=== PATIENT | male | born 1985 | race Caucasian/White ===

== ENCOUNTER 2017-04-06 12:38 | Inpatient (IN) ==
[2017-04-06] MEDS ORDERED: SODIUM CHLORIDE 0.9% INJ ONE ×2 (13:18→14:45)
[2017-04-06] MEDS ORDERED: PEPCID IV ONE (13:18)
[2017-04-06] MEDS ORDERED: NS 1,000 ML IV ONE (13:18)
[2017-04-06] MEDS ORDERED: ZOFRAN IV ONE (13:19)
[2017-04-06 13:50] LABS: MANUAL DIFF NEEDED? NO
[2017-04-06 13:54] LABS: BASO% 0.5 % (0.0-0.8); EOS# 0.12 X1000 (0.0-0.7); EOS% 2.8 % (0.0-10.0); HEMATOCRIT 39.7 % (42.0-52.0); HEMOGLOBIN 13.8 g/dL (14.0-18.0); LYMPH# 0.79 X1000 (1.2-3.4); LYMPH% 18.6 % (20.5-51.1); MCH 29.2 PG (27-31); MCHC 34.8 g/dL (33-37); MCV 83.9 FL (81-99); MONO# 0.44 X1000 (0.11-0.59); MONO% 10.4 % (1.7-9.3); MPV 10.2 FL (7.4-10.4); NEUT% 67.7 % (42.2-75.2); PLT 84 X1000 (130-400); RBC 4.73 XMIL (4.7-6.1)
[2017-04-06 14:05] LABS: AGAP 15; ALBUMIN 3.7 g/dL (3.5-5.0); ALKALINE PHOSPHATASE 229 U/L (32-122); AMYLASE 21 U/L (20-200); BUN 13 mg/dL (8-22); CALCIUM 9.2 mg/dL (8.8-10.2); CHLORIDE 96 mmol/L (98-107); COSMO 267; GOT 55 U/L (10-34); GPT 29 U/L (10-44); LIPASE 31 U/L (13-60); POTASSIUM 3.8 mmol/L (3.5-5.1); SODIUM 133 mmol/L (136-145); TCO2 22 mmol/L (25-35); TOTAL BILIRUBIN 5.43 mg/dL (0.20-1.00); TOTAL PROTEIN 7.6 g/dL (6.3-8.3)
[2017-04-06] MEDS ORDERED: MORPHINE IV ONE (14:13)
[2017-04-06 14:14] LABS: URINE CULTURE NEEDED? NO; URINE MICRO REVIEW NEEDED? NO; URINE SOURCE CLEAN CATCH
[2017-04-06 14:17] LABS: BILIRUBIN URINE MODERATE (NEGATIVE); BLOOD URINE NEGATIVE (NEGATIVE); COLOR ORANGE; GLUCOSE URINE NEGATIVE (NEGATIVE); LEUKOCYTES URINE NEGATIVE (NEGATIVE); NITRITE URINE NEGATIVE (NEGATIVE); PH URINE 5.5; PROTEIN URINE TRACE mg/dL (NEGATIVE); TURBIDITY URINE CLEAR (CLEAR); UR EPITHELIAL CELLS <10 /HPF (<10); URINE BACTERIA NEGATIVE /HPF; URINE RBC <10 /HPF (<10); URINE WBC <10 /HPF (<10); UROBILINOGEN URINE 6 mg/dL (NORMAL)
[2017-04-06] MEDS ORDERED: PROTONIX IV ONE (14:45)
[2017-04-06] MEDS ORDERED: SANDOSTATIN IV ONE (14:45)
[2017-04-06 15:05] LABS: INR 1.17; PROTIME 12.4 Seconds (9.2-11.7)
[2017-04-06] MEDS: SANDOSTATIN 500 MICROGM in D5W 100 ML IV SCH (15:28)
--- NOTE | 2017-04-06 15:39 | EKG Report ---
Test Performed on : 04/06/2017 12:50:44 PM Test Reason : elevated herat rate Blood Pressure : / mmHG Vent. Rate : 104 BPM Atrial Rate : 104 BPM P-R Int : 126 ms QRS Dur : 090 ms QT Int : 350 ms P-R-T Axes : 069 052 069 degrees QTc Int : 460 ms Sinus tachycardia. Otherwise normal ECG No previous ECGs available Unconfirmed Result
--- NOTE | 2017-04-06 15:57 | PROVIDER DOCUMENTATION ---
This chart was entered by Shreyas Bearden Scribe, acting as scribe for Bill Gipson MD. HPI-Abdominal Pain/GI Problem - General Chief Complaint: GI Bleed Stated Complaint: ABD PAIN Time Seen by Provider: 04/06/17 12:50 Source: patient Allergies/Adverse Reactions: Patient Allergies Allergy/AdvReac Type Severity Reaction Status Date / Time No Known Allergies Allergy Verified 04/06/17 13:18 Home Medications: Home Medication List Medication Instructions Recorded Confirmed Last Taken Type NK [No Home Medications] 04/06/17 04/06/17 Unknown History - History of Present Illness-ABD Nature of Presenting Problems: 31 yo M presents to the ER with complaint of epigastic and RUQ pain x 1 week. PT has also been vomiting blood and can't keep anything down. PT has had 3 band ligations. Pt has been to [place] several times recently and is not getting any better. Abdominal Pain Onset Location: reports: RUQ, epigastric Pain Radiation: reports: no radiation Quality of Pain: reports: aching Severity in ED: reports: mild Onset/Duration: reports: 1 week ago Timing: reports: still present Associated Symptoms: reports: nausea, vomiting Emesis Description: reports: red blood Review of Systems - Adult - REVIEW OF SYSTEMS - ADULT Constitutional: denies: chills, fever Cardiovascular: denies: chest pain, palpitations Respiratory: denies: cough, shortness of breath Gastrointestinal: reports: abdominal pain, hematemesis, nausea, vomiting All Other Systems: Reviewed and Negative Past History - Adult - PAST MEDICAL HISTORY-ADULT Review of Records: reports: Old Records Reviewed, Nursing Assessment Review, Medications Reviewed, Social history reviewed & non-contributory. Major Childhood Illnesses: reports: denies history Cardiovascular: reports: denies history Respiratory: reports: denies history Gastrointestinal: reports: liver disease, other (cirrhosis) Obstetrical/Gynecological: reports: denies history Genitourinary: reports: denies history Musculoskeletal: reports: denies history Neurological: reports: denies history Endocrine/Immune: reports: denies history Other Conditions: reports: denies history - PRIOR SURGERIES/PROCEDURES Surgical/Procedure History: reports: cholecystectomy - PRIOR HOSPITALIZATIONS Prior Hospitalizations: reports: none - IMMUNIZATION STATUS Childhood Immunizations: See Nurse Assessment Flu Vaccine: See Nurse Assessment - FAMILY HISTORY Family History: reviewed, not pertinent Physical Exam-General - PHYSICAL EXAM-ADULT Initial Vital Signs Reviewed: Yes - CONSTITUTIONAL General Appearance: appears well, alert, no apparent distress - RESPIRATORY Respiratory: chest non-tender, lungs clear, normal breath sounds - CARDIOVASCULAR Cardiovascular: normal peripheral pulses, tachycardia - GASTROINTESTINAL (ABDOMEN) Abdominal Exam: normal bowel sounds, soft, tenderness. negative: rebound - MUSCULOSKELETAL Extremity: normal range of motion, non-tender, normal gait Progress - PLAN OF CARE/RESULTS Progress/Plan/Lab Results: Vital Signs - 8 hr 04/06/17 12:43 04/06/17 13:14 Temperature 99.4 F 97.5 F L Pulse Rate 130 H 97 H Respiratory Rate 20 16 Blood Pressure 152/85 121/82 O2 Sat by Pulse Oximetry 98 94 L Orders Category Date Time Status EKG [EKG] Stat Ther 04/06/17 12:46 Ordered Result Diagrams: 04/06/17 13:20 04/06/17 13:20 - EKG 1 Time of EKG reading by physician:: 14:09 EKG Read and Signed by:: Bill Gipson EKG Interpretation (*Must complete 3 of following elements*): Normal Rate: 104 Rhythm: sinus tachycardia [place]: normal QRS: normal VT Interval: normal ST Wave: normal Comments: otherwise normal - CONSULTS/PCP/HOSPITALIST Notification #1 *Consult/PCP/Hospitalist*: Dr Demarco Time Discussed: 15:51 Consult Disposition: Admit #2 Consult: Dr Collins(GI) Time Discussed: 15:51 Consult Disposition: Admit Departure - Departure Date of Disposition Decision: 04/06/17 Time of Disposition Decision: 15:52 DIAGNOSIS: Upper gastrointestinal bleeding, Thrombocytopenia Cirrhosis with alcoholism Qualifiers: Ascites presence: without ascites Qualified Code(s): K70.30 - Alcoholic cirrhosis of liver without ascites Disposition: ADMITTED INPATIENT 09 Certified Medical Emergency: Emergent Condition: Fair Referrals and Follow-Ups: None,PCP [Primary Care Provider] - - Critical Care Note This patient required my direct & personal management of CC.: No Comments: A 31 y/o M with significant history of alcoholic cirrhosis and esophageal varices presented with UGI bleed, HB stable platelets were on the lower side, consulted GI, given octreotide and started on drip along with protonix will admit to hospitalist This chart was documented by the indicated scribe, (Shreyas Bearden, Candice) and accurately reflects the services I performed and decisions made by me, Bill Gipson MD, as attested by the provider's signature.
[2017-04-06] MEDS: PROTONIX IV SCH (16:30)
[2017-04-06] MEDS: NS 1,000 ML IV SCH ×2 (16:30→23:59)
[2017-04-06] MEDS: DILAUDID IV PRN ×2 (16:33→20:45)
--- NOTE | 2017-04-06 16:45 | HISTORY AND PHYSICAL ---
HISTORY OF PRESENT ILLNESS: A 31-year-old white male who presented on 04/06/2017. He was admitted back in May. He came in complaining of nausea and vomiting and vomiting up a lot of bright red blood and blood clots. He had been to the [facility], abusing opiates and he got some pain medicines this last week. He has been sick really for a couple of weeks with nausea. He has not had much to eat in the last couple days. He thinks he has 2 tacos the last 3 or 4 days. He drank pretty heavy. I think by report started smoking marijuana at age 11 and began Lortab at age 17. He was taking at 1 point over 150 mg a day and then was taking some Xanax, began Adderall at age 23. He was working out I think and he said in [place] and developed some liver trouble, went to [facility]. I think they found cirrhosis. They did paracentesis. It sounds like they had to do some esophageal banding as well and he said something about splenic thrombosis, I am not sure if they are talking about splenic vein thrombosis. He said they were contemplating removing part of his spleen, but elected not to. ALLERGIES: He has no known drug allergies. FAMILY HISTORY: Noncontributory. He states that he has had loose stools for a week. He does not think they appeared black, but off and on he has been throwing up and throwing up little bits of blood. His stomach hurts after he eats. He has diffuse abdominal pain. He is requesting something for pain at the present and also for his headache. PHYSICAL EXAMINATION: VITAL SIGNS: Temperature 97.5 degrees, pulse 90, respirations 18, blood pressure 127/84. HEENT: Pupils are equal, round. LUNGS: Clear in all lung noel. CARDIOVASCULAR: Regular rhythm and rate without murmur or S3. ABDOMEN: Soft. SKIN: Warm and dry. WEIGHT: 200 pounds. I wonder if that is accurate. HEIGHT: Is 5 feet 10 inches. LABORATORY: White count 4250, hematocrit 39, platelet count 84,000, MCV is 83. Sodium 133, potassium 3.8, chloride 96, bicarb 22, BUN 13, creatinine 0.6, blood sugar 101. Liver functions: AST was 55, ALT 29, alkaline phos 229, albumin 3.7, amylase 21, lipase 31. ProTime is 12.4 and INR 1.17. Urinalysis unremarkable. Blood type is O positive. ASSESSMENT AND PLAN: 1. Upper gastrointestinal bleed. This may be esophageal. He could also have a gastric ulcer. Gastritis. We will put him on a proton pump inhibitor at the present time. I will put him on an octreotide drip. He is getting 50 mcg/hour. We will have him on a proton pump inhibitor as well. We will give Protonix 40 mg IV q.12 hours. GI is notified we are moving to the unit. Follow serial hemoglobin, hematocrit, give him some normal saline and probably need 2 ports to IV access. 2. Presume he has hepatic cirrhosis with portal hypertension. 3. Note that the platelet count is 84,000. His INR is 1.17, ProTime 12.4. He is complaining of something for pain. We will let him have some Dilaudid for now. cc: Yonis Valiente MD
[2017-04-06] MEDS ORDERED: DILAUDID IV ONE (22:32)
[2017-04-07] MEDS: DILAUDID IV PRN ×5 (00:47→19:47)
[2017-04-07] MEDS: SANDOSTATIN 500 MICROGM in D5W 100 ML IV SCH ×2 (00:47→11:47)
[2017-04-07] MEDS: PROTONIX IV SCH ×2 (04:39→16:45)
[2017-04-07] MEDS: SODIUM CHLORIDE 0.9% INJ SCH ×2 (04:39→16:45)
[2017-04-07] MEDS ORDERED: OFIRMEV 1000 MG/ISOTONIC SOLN 1,000 MG/100 ML BOTTLE IV ONE (06:15)
[2017-04-07] MEDS: ZOFRAN IV PRN (06:18)
[2017-04-07 06:35] LABS: MANUAL DIFF NEEDED? NO
[2017-04-07 06:46] LABS: INR 1.2; PROTIME 12.7 Seconds (9.2-11.7); PTT 32.2 Seconds (22.0-36.0)
[2017-04-07 06:57] LABS: AGAP 13; ALBUMIN 3.5 g/dL (3.5-5.0); ALKALINE PHOSPHATASE 224 U/L (32-122); BUN 11 mg/dL (8-22); CALCIUM 8.5 mg/dL (8.8-10.2); CHLORIDE 98 mmol/L (98-107); COSMO 274; GOT 63 U/L (10-34); GPT 32 U/L (10-44); MAGNESIUM 1.8 mg/dL (1.5-2.7); POTASSIUM 3.9 mmol/L (3.5-5.1); SODIUM 137 mmol/L (136-145); TCO2 26 mmol/L (25-35); TOTAL BILIRUBIN 4.35 mg/dL (0.20-1.00); TOTAL PROTEIN 7.5 g/dL (6.3-8.3)
[2017-04-07 07:07] LABS: BASO% 0.5 % (0.0-0.8); EOS# 0.09 X1000 (0.0-0.7); EOS% 4.3 % (0.0-10.0); HEMATOCRIT 39.1 % (42.0-52.0); HEMOGLOBIN 13.1 g/dL (14.0-18.0); LYMPH# 0.59 X1000 (1.2-3.4); LYMPH% 28.1 % (20.5-51.1); MCH 29.4 PG (27-31); MCHC 33.5 g/dL (33-37); MCV 87.9 FL (81-99); MONO# 0.26 X1000 (0.11-0.59); MONO% 12.4 % (1.7-9.3); MPV 9.8 FL (7.4-10.4); NEUT% 54.7 % (42.2-75.2); PLT 56 X1000 (130-400); RBC 4.45 XMIL (4.7-6.1)
[2017-04-07] MEDS: NS 1,000 ML IV SCH ×2 (08:12→16:45)
--- NOTE | 2017-04-07 12:33 | PROGRESS NOTE ---
DATE: 04/07/2017 SUBJECTIVE: He is extubated and was resting comfortably this morning, shortly after complaining of severe headache, with just generalized headache in the front and the back. No focal neurologic deficits. OBJECTIVE: Vital signs: Temperature 97.3 degrees, pulse 74, respirations 17, blood pressure 112/72. HEENT: The pupils are equal, round. Lungs: Clear in all lung noel. Cardiovascular: Regular rhythm and rate, without murmur or S3. Abdomen: Soft. Skin: Warm and dry. URINE OUTPUT: 1850 mL. LABORATORY: White count 2100, hematocrit 39, platelet count 56,000. It was 84,000 yesterday. Chemistries: Sodium 137, potassium 3.9, chloride 98, bicarbonate 26, BUN 11, creatinine 0.7, blood sugar 110, calcium 8.5, alkaline phosphatase 224, AST was 63, and ALT was 32. ASSESSMENT AND PLAN: 1. Upper gastrointestinal bleed, vomiting. Suspect a Joseline-Tolentino tear. Continue his proton pump inhibitor. He had abdominal/pelvic CT. Unsure if we have a copy of that, but there was apparently some complaints of air in the mediastinum. 2. Heroin. I suspect we are going through heroin withdrawal. He had a long history of opioid dependence. Not sure if there are any recent IV drugs or not. He denies. He has a history of hepatic cirrhosis and portal hypertension. I will continue follow. 3. Low platelet count, I think secondary to alcohol and to the underlying hepatic liver disease. He has a history of esophageal bleeding before. He is on an octreotide drip. REVIEW OF HIS ORDERS: I do not see anything to change at this point. I am giving him Dilaudid 1 mg IV q.4 hours p.r.n. He is complaining of headache. I do not want to give him nonsteroidal anti- inflammatories at this point. Review of his lab this morning is about the same. He has pretty severe headache, so we will get a CT of his head without contrast. Note: There was no CT of his chest and there was no evidence of any Joseline-Tolentino injury or free air, so that report was not accurate, but he has had bleeding and vomiting up blood, so he is here for upper gastrointestinal bleed. cc: Yonis Valiente MD
--- NOTE | 2017-04-07 12:37 | Diag Imaging Result Doc PS360 ---
EXAM: HEAD W/O CONTRAST HISTORY: severe headache TECHNIQUE: CT of the head without contrast with dose reduction (clarity.) COMMENT: There is no evidence of mass effect, bleed, or abnormal extra-axial fluid collection. The paranasal sinuses are clear is seen. The calvarium appears to be intact. IMPRESSION: No acute intracranial disease. Electronically signed by Tyson Waggoner 04/07/2017 12:35 PM
[2017-04-07] MEDS ORDERED: ZOFRAN ONE (14:49)
[2017-04-07] MEDS: DILAUDID ONE ×3 (14:54→15:09)
[2017-04-07] MEDS ORDERED: DIPRIVAN 1% 500 MG/50 ML BOTTLE ONE (15:14)
[2017-04-07] MEDS ORDERED: LR 1,000 ML ONE (15:21)
[2017-04-07] MEDS ORDERED: XYLOCAINE-MPF 2% ONE (15:21)
[2017-04-07] MEDS ORDERED: QUELICIN (DOSE) ONE (15:21)
--- NOTE | 2017-04-07 15:47 | OPERATIVE NOTE ---
PROCEDURE DATE: 04/07/2017 PROCEDURE: Esophagogastroduodenoscopy and banding. PREOPERATIVE DIAGNOSIS: Gastrointestinal bleed. POSTOPERATIVE DIAGNOSES: 1. Esophageal varices. 2. Food in the stomach. 3. Otherwise normal esophagogastroduodenoscopy. HISTORY: This is a 31-year-old gentleman with history of cirrhosis of the liver with esophageal varices status post banding, admitted to hospital with symptoms of hemoptysis/hematemesis. EGD was done to evaluate for possible variceal bleed. DESCRIPTION OF PROCEDURE: Informed consent was obtained from the patient. Procedure risks, benefits, alternatives were explained in layman's terms. He understood. All his pertinent questions were answered. Patient was brought to the endoscopy unit and was intubated and put in general anesthesia. After adequate sedation, while he was lying in left lateral position, the gastroscope was introduced into the posterior pharynx and advanced under direct vision into the esophagus. Esophagus showed 2 columns of esophageal varices grade 2, 3. However there was no stigmata of recent bleed. No castro-red spot was seen. No evidence of bleeding noted. The GE junction was noted at about 40 cm from the incisor. There was some hyperemia noted but no distinct ulcer, or evidence of active bleeding seen. The scope was then passed through the esophagus into the stomach, which showed a moderate amount of food which was covering most of the stomach. Only the antrum could be evaluated, which did not show any evidence of ulcer, AVM or masses. No evidence of active bleeding or stigmata of recent bleed seen in the stomach. There was food content and the stomach was also clear of any blood or altered blood or clots. Scope was then passed through the normal pylorus, into the duodenal bulb and then 2nd part of duodenum, both appeared to be normal. Scope was withdrawn back and the band was applied onto the scope. The scope was reintroduced back into the esophagus and 3 bands were applied on the varices. After the bands were deployed scope was withdrawn. Patient tolerated procedure. No complications noted. Patient will be extubated after the procedure. IMPRESSION: 1. Esophageal varices grade 2-3, bands applied. 2. Food in the stomach and otherwise no evidence of active bleeding. RECOMMENDATION: His presentation was highly suggestive of hemoptysis and I did not see any evidence of active bleeding or stigmata of recent bleed in the stomach or esophagus. I think it needs to be evaluated for hemoptysis. In the meantime, I would taper and discontinue his Sandostatin, continue his proton pump inhibitor but change to p.o., and start him on full liquid diet and advance his diet as tolerated. He he will be followed while he is in the hospital, and I will advise him to follow up with Dr. Lechuga at [facility]. cc: Rayo Parisi MD
--- NOTE | 2017-04-07 16:07 | CONSULTATION ---
DATE OF CONSULTATION: 04/07/2017 CONSULTING PHYSICIAN: Dr. Yonis Valiente. REASON FOR CONSULT: Upper GI bleed. HISTORY OF PRESENT ILLNESS: This is a 30-year-old gentleman who has a known history of alcohol- induced cirrhosis of the liver and esophageal varices. He is currently being followed by Dr. Lechuga at [facility]. He was admitted at [facility] multiple times with similar symptoms. However, he was investigated and found to have hemoptysis rather than hematemesis. His esophageal varices were banded. He was also evaluated for SBP and has had multiple admissions for that. He was brought to the emergency room yesterday with similar symptoms of "spitting up blood." He tells me that he has been nauseated and has tried to vomit and had seen some bright red blood. He, however, denies any melena. He does complain of some indigestion but denies abdominal pain per se. His appetite has been good. He is hungry. In fact, he was supposed to be NPO but he had gone and had a burger . He claims that he has had an appointment with [facility] liver clinic for evaluation of his esophageal varices but he was not able to make it to the appointment because of lack of transportation. PAST MEDICAL HISTORY: 1. Cirrhosis of the liver with portal hypertension. 2. Esophageal varices. 3. History of hemoptysis and recurrent SBP. PAST SURGICAL HISTORY: He has had arthroscopic surgery of his knee and shoulder. MEDICATIONS: Prior to his hospitalization, he claims he was not taking any medication now. ALLERGIES: No known allergies. SOCIAL HISTORY: He is currently living in [place]. He claims he chews tobacco but he says he does not drink. REVIEW OF SYSTEMS: As per HPI as above. PHYSICAL EXAMINATION: General: Very pleasant white male. He is lying in bed. He is conscious, alert. Appears to be in no distress. Vital signs: Temperature 97.6 degrees, pulse 86 per minute, breathing 16, blood pressure 112/72. He weighs about 200 pounds. HEENT: Head is atraumatic, normocephalic. Eyes: Conjunctivae is normal. Sclerae anicteric. Nares are patent. No discharge. Mouth: Buccal mucosa moist. Throat is normal. Neck: Supple. No lymphadenopathy or thyromegaly. Chest: Clear to auscultation. Heart: S1, S2 audible. No murmur. Abdomen: Full, soft, nontender. Bowel sounds are audible. Extremities: No pedal edema noted. LABS: Reviewed which showed WBC 2.10, hemoglobin 13.1, hematocrit 39.1, MCV 87.9, platelets were 56,000. PTT 12.7, INR 1.20. Sodium 137, potassium 3.9, chloride 98, bicarb 26, BUN is 11, creatinine 0.7, glucose 110, AST 63, ALT 32, total bilirubin 4.35, alkaline phosphatase was 224. Urinalysis was negative for UTI. IMPRESSIONS: 1. Hematemesis versus hemoptysis. 2. History of esophageal varices. 3. Cirrhosis of the liver with portal hypertension. 4. Chronic alcohol abuse and chronic alcoholic liver disease. RECOMMENDATION: I agree with current management of Sandostatin drip, proton pump inhibitor IV, and serial hemoglobin and hematocrit. Continue supportive care. In the meantime, we will schedule him for EGD as soon as possible to evaluate for possible variceal bleeding, at least to rule that out. But by the description of his symptoms and the photograph that he showed me on his cell phone of the supposed hematemesis, it appears it is frothy sputum with blood in it, most likely appears to be hemoptysis. But giving him the benefit of doubt and with a history of esophageal varices and status post banding, I will proceed with EGD and confirm that it is not esophageal variceal bleeding and depending on the findings, further plans made. He was due for re- evaluation of his esophageal varices and possible banding anyway and this will give me an opportunity if he needs to, we will band him. I have explained our findings and plan to the patient. He understands. All of his pertinent questions were answered. cc: Rayo Parisi MD
[2017-04-07] MEDS: ATIVAN IV PRN ×2 (17:37→22:02)
[2017-04-08] MEDS: SANDOSTATIN 500 MICROGM in D5W 100 ML IV SCH ×3 (00:16→22:21)
[2017-04-08] MEDS: NS 1,000 ML IV SCH ×3 (00:17→18:06)
[2017-04-08] MEDS: DILAUDID IV PRN ×5 (00:17→20:01)
[2017-04-08] MEDS: PROTONIX IV SCH ×2 (05:40→16:13)
[2017-04-08] MEDS: SODIUM CHLORIDE 0.9% INJ SCH ×2 (05:40→16:13)
[2017-04-08] MEDS: ATIVAN IV PRN ×4 (05:40→22:21)
[2017-04-08] MEDS: FIORICET PO PRN ×3 (10:19→20:01)
--- NOTE | 2017-04-08 10:23 | PROGRESS NOTE ---
DATE: 04/08/2017 SUBJECTIVE: He is still spitting up blood but seems to be coughing it up. He has not had any further emesis of blood. He has complained of a headache and is requesting Dilaudid more often then what I am giving him; it is 1 mg for q.4 hours. We will try some Fioricet to see if that helps. OBJECTIVE: Afebrile. Temperature 97.3 degrees, pulse 70, respirations 20, blood pressure 117/84. HEENT: Pupils are equal, round, lungs clear in all lung noel. Cardiovascular: Regular rhythm and rate without murmur or S3. Urine output over 5 mL. LABORATORY DATA: Labs reviewed from yesterday, white blood cell count 2400, hematocrit 39, platelet count 56,000. Chemistry: Sodium of 137, potassium 3.9, chloride 98, BUN 11, creatinine 0.7, total bilirubin was 4.35, AST 63, and ALT 32, alkaline phos 224. ASSESSMENT AND PLAN: 1. Alcoholic hepatic disease with portal hypertension and esophageal varices. Appeared to have an upper gastrointestinal bleed but, also, may have hemoptysis. Dr. Parisi has performed esophagogastroduodenoscopy, and this was done on 04/07/2017. He has esophageal varices, grade 2-3. Bands were applied. Food in the stomach. Otherwise, no evidence of active bleeding. 2. Hemoptysis. We will ask Dr. Lott to assist. He does have marginal platelets. We will check a chest x-ray this morning. Probably need to pursue getting a CT of his chest. We will recheck his platelet count today. 3. Complains of headache. I am not sure to what degree. This could be drug withdrawal or even alcohol withdrawal. I think we can stop the Octreotide to see if that will help his headache. We will try some Fioricet for the headache. Of note, he is on Dilaudid 1 mg q.4 hours which he is getting pretty routinely. We are going to have to reduce that and he understands that. cc: Yonis Valiente MD
--- NOTE | 2017-04-08 12:04 | Diag Imaging Result Doc PS360 ---
EXAM: CHEST-PORTABLE HISTORY: hemoptysis TECHNIQUE: Portable upright AP COMPARISON: 12/02/2016 FINDINGS: Poor inspiratory effort. Heart is not enlarged. The vessels are not distended. No pneumonia. No pleural effusions identified. IMPRESSION: Stable chest. Electronically signed by Perry Joy 04/08/2017 12:02 PM
--- NOTE | 2017-04-08 15:58 | PROGRESS NOTE ---
DATE: 04/08/2017 SUBJECTIVE: Patient is asleep and resting. Talked with nurse, she states he has been agitated and irritable all day. He received Fiorinal for headaches and has just went to sleep, I did not wake the patient. The nurse reports he has had 2 episodes of hemoptysis with bright red blood today. He had an EGD yesterday that showed esophageal varices and food in the stomach. Esophageal varices grade 2-3 with bands applied. At the time of the procedure there was no evidence of active bleeding or stigmata of recent bleeding in the stomach or esophagus. It was felt that the bleeding was from hemoptysis. OBJECTIVE: VITAL SIGNS: Temperature 97.3 degrees, pulse 73, respirations 21, blood pressure 117/84. LABORATORY: From 04/07/2017: Hematology; white count 2.19, hemoglobin 13.1, hematocrit 39.1, MCV 87.9, platelets 56,000. Coagulation; ProTime 12.7, INR 1.20, PTT 32.2. Chemistry; sodium 137, potassium 3.9, chloride 98, CO2 26, BUN 11, creatinine 0.7, glucose 110, total bilirubin 4.35, AST 63, ALT 32, alkaline phosphatase 224. ASSESSMENT: 1. Hemoptysis. 2. Alcoholic cirrhosis of the liver with portal hypertension and esophageal varices. 3. Esophageal varices with bands applied via esophagogastroduodenoscopy on 04/07. 4. Headache. PLAN: Continue supportive care. Continue PPI. Continue to monitor for active bleeding. We will continue to follow. Recommend he follow up with his doctor at [facility] once discharged for followup of his cirrhosis of the liver. Pulmonology consult has been placed. We will continue to be available. Further plans will be made according to Dr. Pairsi. Dictated by RANJIT Murguia for Rayo Parisi MD cc: RANJIT Lord MD [facility]
--- NOTE | 2017-04-08 16:06 | Diag Imaging Result Doc PS360 ---
EXAM: CT THORAX W/CONTRAST HISTORY: pneumonia TECHNIQUE: Dose reduction protocol COMPARISON: 03/27/2016 FINDINGS: No pleural effusions. No cardiomegaly. No thoracic aortic aneurysm or dissection. There are several calcified mediastinal nodes. Mildly prominent noncalcified nodes. There is an azygous fissure. This is a normal variant. Minimal markings in the right lung believed to be atelectasis and/or fibrosis. Right hemidiaphragm is elevated. No consolidation. No bronchiectasis. Limited images through the upper abdomen reveals hepatosplenomegaly with cholecystectomy. Findings are similar to the prior exam. IMPRESSION: Stable chest. No pneumonia. Electronically signed by Perry Joy 04/08/2017 4:03 PM
--- NOTE | 2017-04-08 21:12 | CONSULTATION ---
DATE OF CONSULTATION: 04/08/2017 REQUESTING PHYSICIAN: Dr. Yonis Valiente. REASON FOR CONSULTATION: Hemoptysis versus hematemesis. HISTORY OF PRESENT ILLNESS: Mr. Reyna is a 31-year-old, white male with a history of alcoholic cirrhosis, prior opioid dependency, history of marijuana use, chronic oral tobacco use who has had prior episodes of varicocele bleeding and ascites. Patient has undergone esophageal varices ligation/banding. The patient was admitted to [facility] earlier this year with the diagnosis of hemoptysis. It might have been related to the variceal bleeds. He did have an EGD by his report. No bronchoscopy was performed. The patient reports over the last 2 weeks that if he goes to bed while chewing tobacco and gags in the middle night he will cough or spit up blood. He also reports that if he brushes his teeth and coughs or gags, he will split up blood briefly. He was admitted to the hospital 04/06/2017 with these complaints. He was evaluated by Dr. Parisi and underwent an esophagogastroduodenoscopy with banding. No active bleeding was identified and it was felt that his presentation would be more consistent with hemoptysis. Pulmonary evaluation was requested. PAST MEDICAL HISTORY/PROBLEM LIST: 1. Alcoholic liver disease as per above. 2. History of opioid dependence as per above. 3. History of oral tobacco use for greater than 20 years. SOCIAL HISTORY: Patient is unemployed. No cigarette use. Continued daily oral tobacco use. FAMILY HISTORY: Positive for coronary artery disease. REVIEW OF SYSTEMS: Notable for headaches, frequent dizziness, decreased appetite. PHYSICAL EXAMINATION: General: Reveals a well-developed, well-nourished, white male, resting comfortably, and in no distress. Vital signs: Blood pressure 131/82, heart rate 83, respiratory rate 19, oxygen saturation 97% on room air. HEENT: Pupils are equal and reactive. He has mild icteric sclerae. Oropharynx appears benign without overt lesions. Neck: Supple. Chest: Reveals decreased breath sounds right base. Cardiac: Regular rate. Normal S1, normal S2. Abdomen: Soft without hepatosplenomegaly detected on examination. Extremities: Without edema. LABORATORIES: CT scan of the thorax reveals an azygos lobe which is a normal variant. He has elevation of the right hemidiaphragm (also noted in prior [facility] reports). No acute disease in the thorax identified. No evidence of alveolar bleeding. INR is normal at 1.20, white blood count 2.10, hemoglobin 13.1, platelet count 56,000. IMPRESSION: A 31-year-old with alcoholic cirrhosis, ongoing alcohol use, chronic oral tobacco use, chronic thrombocytopenia, with hemoptysis or hematemesis. By patient's report, this may be an upper airway lesion or could be an oropharyngeal lesion. No blood was identified in the stomach. To complete his evaluation, I believe a CT scan of the mouth and neck should be performed. Bronchoscopy will be scheduled for Thursday. It was recommended to the patient that he discontinue alcohol given his underlying cirrhosis. It was also recommended that he discontinue oral tobacco given the increased risk of oral malignancy. RECOMMENDATIONS: 1. Computed tomography scan of the mouth and neck as per above. 2. Anticipate bronchoscopy on Thursday. 3. Discontinuation of alcohol and oral tobacco as recommended above. cc: Sharath Lott MD
[2017-04-09] MEDS: FIORICET PO PRN ×2 (00:06→05:00)
[2017-04-09] MEDS: DILAUDID IV PRN ×5 (00:06→21:26)
[2017-04-09] MEDS: ATIVAN IV PRN ×2 (02:42→07:32)
[2017-04-09] MEDS: PROTONIX IV SCH ×2 (04:59→17:20)
[2017-04-09] MEDS: SODIUM CHLORIDE 0.9% INJ SCH ×2 (04:59→17:20)
[2017-04-09] MEDS: SANDOSTATIN 500 MICROGM in D5W 100 ML IV SCH ×2 (07:32→17:20)
--- NOTE | 2017-04-09 09:49 | Diag Imaging Result Doc PS360 ---
EXAM: NECK W/O CONTRAST - 04/09/2017 HISTORY: Recurrent hemoptysis, hematemasis with gagging TECHNIQUE: Without contrast per request the referring provider. Dose reduction protocol. COMPARISON: None. FINDINGS: There is some limitation of detail due to the lack of progression intravenous contrast. There is a 2.9 x 1.4 cm lesion in the deep subcutaneous tissues of the lower left face with its base against the lateral margin of the posterior body of the mandible. The outer mandibular cortex appears thinned at this location. The lesion contains mixed low-density and high-density areas. While surgical packing material could have a similar appearance, there apparently is no history of recent surgery in this area in the mandible does not show evidence of tooth extraction in this area. The possibility this represents unusual tumor arising from the external aspect of the mandible, such as periosteal liposarcoma, cannot be excluded. There are scattered nonspecific small bilateral cervical lymph nodes. There are no abnormally enlarged lymph nodes identified. IMPRESSION: Apparent 2.9 x 1.4 cm unusual mass at the left lower face adjacent to the external margin of the body of the left mandible. There is thinning of the underlying external cortex of the mandible at this location. Periosteal liposarcoma may be a consideration. Results were discussed by telephone with Dr. Lott at approximately 9:45 AM on 04/09/2017. Electronically signed by Rivas Mars 04/09/2017 9:47 AM
[2017-04-09] MEDS ORDERED: FIORICET PO ONE (11:10)
--- NOTE | 2017-04-09 14:07 | Diag Imaging Result Doc PS360 ---
EXAM: NECK W/O CONTRAST - 04/09/2017 HISTORY: left mandibular mass TECHNIQUE: Without contrast. Dose reduction protocol. COMPARISON: CT neck from earlier the same day (04/09/2017) FINDINGS: The patient apparently told Dr. Walls sometime after the first CT neck was performed he had chewing tobacco in his mouth at the time of scanning, but had not told the clinical lab technologist of this. The lesion which was seen at the left lower face adjacent to the external margin of the body of the mandible is not seen on this exam. The lesion on the previous exam therefore is consistent with a wide of chewing tobacco, rather than a true lesion. The suspected cortical thinning at the underlying mandibular margin on the previous exam was probably artifactual and is not identified on this exam. There is no other substantial abnormality identified. IMPRESSION: No visible substantial abnormality. The suspected lesion at the left lower face on the earlier exam as shown by this exam to be consistent with a wide of chewing tobacco on the earlier exam. There is no visible lesion on this exam. Electronically signed by Rivas Mars 04/09/2017 2:05 PM
[2017-04-09] MEDS ORDERED: FIORICET PO PRN (16:29)
--- NOTE | 2017-04-09 16:48 | PROGRESS NOTE ---
DATE: 04/09/2017 SUBJECTIVE: The patient was transferred out of the unit this morning. He now reports that he has been feeling very depressed and suicidal. He also complains of abdominal pain and continues to cough up bright red blood. OBJECTIVE: Vital Signs: Temperature 98.2 degrees, blood pressure 116/76, heart rate 81, respirations 20, O2 saturations 97% on room air. General: This is a young male , lying in bed, in no acute distress. Head: Normocephalic, atraumatic. Heart: S1, S2. Normal. Regular rate and rhythm. Lungs: Clear to auscultation bilaterally. No crackles. No rales. Abdomen: Positive bowel sounds. Soft, nontender, nondistended. Extremities: No edema. No cyanosis. No calf tenderness. Neurologic: The patient appears depressed, but he is alert and oriented x3. No focal neurologic deficits noted. LABORATORY: White blood cell count 2.1, hemoglobin 13, hematocrit 39, platelets 56,000, INR 1.2, sodium 137, potassium 3.9, chloride 98, CO2 26, BUN 11, creatinine 0.7, glucose 110, total bilirubin 4.3, AST 63, ALT 32, alkaline phosphatase 224. ASSESSMENT AND PLAN: 1. Status post EGD with banding to esophageal varices. Continue on protonix. Monitor H/H closely. 2. Alcoholic liver cirrhosis. Aware. The case was discussed with the on-call hand washer at [facility] today and he stated to continue with the current management. No new recommendations given. 3. Hemoptysis. The patient's computed tomography of the chest is unremarkable. The patient is tentatively going to undergo a bronchoscopy. Further recommendations to follow from the inpatient auditor. 4. Alcohol abuse. The patient has been counseled about cessation. 5. Major depression with suicidal ideation. The patient will be placed on one- to-one monitoring. Once the patient is medically stable, we will consult [facility] for an assessment. 6. Portal hypertension. Aware. 7. Chronic abdominal pain. Continue on p.r.n. pain medication. 8. Polysubstance abuse. Aware. cc: Micaela Walls MD MTDD
[2017-04-09] MEDS: NORCO-7.5 PO PRN ×2 (17:19→22:28)
[2017-04-10] MEDS: DILAUDID IV PRN ×5 (01:19→23:00)
[2017-04-10] MEDS: NORCO-7.5 PO PRN ×5 (02:00→23:48)
[2017-04-10] MEDS: PROTONIX IV SCH ×3 (04:27→17:07)
[2017-04-10] MEDS: SANDOSTATIN 500 MICROGM in D5W 100 ML IV SCH ×2 (04:27→13:29)
[2017-04-10] MEDS: SODIUM CHLORIDE 0.9% INJ SCH (04:27)
[2017-04-10 06:00] LABS: MANUAL DIFF NEEDED? NO
[2017-04-10] MEDS: ZOFRAN IV PRN ×2 (06:22→23:42)
[2017-04-10 06:37] LABS: AGAP 8; ALBUMIN 3.2 g/dL (3.5-5.0); ALKALINE PHOSPHATASE 191 U/L (32-122); BUN 7 mg/dL (8-22); CALCIUM 8.4 mg/dL (8.8-10.2); CHLORIDE 98 mmol/L (98-107); COSMO 268; GOT 41 U/L (10-34); GPT 21 U/L (10-44); POTASSIUM 4.6 mmol/L (3.5-5.1); SODIUM 135 mmol/L (136-145); TCO2 29 mmol/L (25-35); TOTAL BILIRUBIN 2.73 mg/dL (0.20-1.00); TOTAL PROTEIN 6.8 g/dL (6.3-8.3)
[2017-04-10 06:40] LABS: BASO% 0.4 % (0.0-0.8); EOS# 0.09 X1000 (0.0-0.7); EOS% 3.7 % (0.0-10.0); HEMATOCRIT 38.4 % (42.0-52.0); HEMOGLOBIN 12.9 g/dL (14.0-18.0); LYMPH# 0.62 X1000 (1.2-3.4); LYMPH% 25.3 % (20.5-51.1); MCH 29.1 PG (27-31); MCHC 33.6 g/dL (33-37); MCV 86.5 FL (81-99); MONO# 0.29 X1000 (0.11-0.59); MONO% 11.8 % (1.7-9.3); MPV 10.5 FL (7.4-10.4); NEUT% 58.8 % (42.2-75.2); PLT 65 X1000 (130-400); RBC 4.44 XMIL (4.7-6.1)
[2017-04-10 06:51] LABS: INR 1.26; PROTIME 13.4 Seconds (9.2-11.7)
[2017-04-10] MEDS ORDERED: XYLOCAINE 1% ONE ×2 (07:08)
[2017-04-10] MEDS ORDERED: XYLOCAINE 2% ONE ×2 (07:09)
[2017-04-10] MEDS ORDERED: XYLOCAINE 2% VISCOUS ONE (07:09)
[2017-04-10] MEDS ORDERED: SODIUM CHLORIDE 0.9% 20 ML ONE (07:10)
[2017-04-10] MEDS ORDERED: EPINEPHRINE ONE (07:10)
[2017-04-10] MEDS ORDERED: FENTANYL ONE (08:59)
[2017-04-10] MEDS ORDERED: VERSED ONE (08:59)
[2017-04-10] MEDS ORDERED: DIPRIVAN 1% 500 MG/50 ML BOTTLE ONE (09:00)
[2017-04-10] MEDS ORDERED: ZOFRAN ONE (09:12)
[2017-04-10] MEDS ORDERED: ROBINUL ONE (09:12)
[2017-04-10] MEDS ORDERED: NS 1,000 ML ONE (09:12)
[2017-04-10] MEDS ORDERED: XYLOCAINE-MPF 2% ONE (09:12)
--- NOTE | 2017-04-10 09:13 | OPERATIVE NOTE ---
PROCEDURE DATE: 04/10/2017 PROCEDURE PERFORMED: Bronchoscopy. CLINICAL INDICATIONS: Hemoptysis versus hematemesis. DESCRIPTION OF PROCEDURE: After informed consent was obtained, patient was brought to the operating room where the procedure was performed. A time-out was performed and all agreed with the procedure. Topical anesthesia was achieved with viscous lidocaine to both the left and right nostrils. Topical anesthesia above the vocal cords was achieved with 2% lidocaine and 1% lidocaine was utilized below the vocal cords. Monitored anesthesia care was provided by the [facility]. When topical anesthesia and conscious sedation were achieved, bronchoscope was advanced through the left nostril to the level of the vocal cords. The vocal cords were smooth and without lesions. No overt lesions were identified in the hypopharynx. The bronchoscope was advanced into the trachea. There was mild increase in secretions in the trachea which were suctioned for cultures and cytology. Submucosal hemorrhage was noted. In the trachea both proximally and distally and the airways were friable with submucosal hemorrhage elicited with minimal scope trauma. No fresh blood was identified in the airway. The trachea, and right and left mainstem were otherwise without lesions. No endobronchial lesions were identified in the right upper lobe, right middle lobe, right lower lobe, left upper lobe, lingula or left lower lobe. The bronchoscope was retracted. The patient was allowed to recover. IMPRESSION: 1. No fresh blood identified in the tracheobronchial tree. 2. Submucosal hemorrhage noted in the trachea with easy bruisability noted in the airways. 3. No obstructing endobronchial lesions identified. 4. Washing performed as per above. It is suspected that patient developed submucosal hemorrhaging due to increased venous pressures in the trachea along with coagulopathy. A collagen epinephrine platelet test will be sent. cc: Sharath Lott MD
--- NOTE | 2017-04-10 14:35 | PROGRESS NOTE ---
DATE: 04/10/2017 SUBJECTIVE: The patient is resting comfortably in bed. He reports that he is still spitting up blood. He had a bronchoscopy this morning. OBJECTIVE: Vital Signs: Temp 98.6 degrees, blood pressure 115/57, heart rate 83, respirations 18, O2 saturation 98% on room air. General: This is a young male, lying in bed, in no acute distress. Head: Normocephalic, atraumatic. Heart: S1, S2. Normal. Regular rate and rhythm. Lungs: Clear to auscultation bilaterally. Abdomen: Positive bowel sounds. Soft, nontender, nondistended. Extremities: No edema. No cyanosis. No calf tenderness. Neurologic: The patient is alert and oriented x3. LABS: White blood cell count 2.4. Hemoglobin 12. Hematocrit 38. Platelets 65 ,000. INR 1.2. Sodium 135, potassium 4.6, chloride 98, CO2 29, BUN 7, creatinine 0.7, glucose 98. ASSESSMENT AND PLAN: 1. Hemoptysis secondary to submucosal hemorrhage. The patient had a bronchoscopy today that revealed submucosal hemorrhage. It is thought that this was secondary to increased venous pressures. We will continue to monitor the patient closely for improvement. Will start the patient on nadolol. 2. Esophageal varices status post banding. Continue on Protonix. 3. Anemia. The patient's hemoglobin and hematocrit are stable. 4. Alcoholic liver cirrhosis. Aware. The patient has been counseled about alcohol cessation. 5. Severe depression with suicidal ideation. Continue with one-to-one monitoring. Will consult [facility] for an assessment for possible inpatient psychiatric treatment. cc: Micaela Walls MD MTDD
[2017-04-10] MEDS: CORGARD PO SCH (14:57)
[2017-04-10] MEDS: COLACE PO SCH (23:01)
[2017-04-10] MEDS: MIRALAX PO SCH (23:01)
[2017-04-11] MEDS: DILAUDID IV PRN ×5 (03:08→23:03)
[2017-04-11] MEDS: NORCO-7.5 PO PRN ×4 (05:00→20:04)
[2017-04-11] MEDS: PROTONIX IV SCH ×2 (05:03→16:17)
[2017-04-11 06:33] LABS: MANUAL DIFF NEEDED? NO
[2017-04-11 06:46] LABS: BASO% 0.4 % (0.0-0.8); EOS# 0.19 X1000 (0.0-0.7); EOS% 2.5 % (0.0-10.0); HEMATOCRIT 39.8 % (42.0-52.0); HEMOGLOBIN 13.6 g/dL (14.0-18.0); LYMPH% 13.4 % (20.5-51.1); MCH 29.2 PG (27-31); MCHC 34.2 g/dL (33-37); MCV 85.4 FL (81-99); MONO# 0.69 X1000 (0.11-0.59); MONO% 9.2 % (1.7-9.3); MPV 10.2 FL (7.4-10.4); NEUT% 74.5 % (42.2-75.2); PLT 107 X1000 (130-400); RBC 4.66 XMIL (4.7-6.1)
[2017-04-11 07:07] LABS: AGAP 10; BUN 11 mg/dL (8-22); CALCIUM 8.5 mg/dL (8.8-10.2); CHLORIDE 100 mmol/L (98-107); COSMO 271; POTASSIUM 4.2 mmol/L (3.5-5.1); SODIUM 136 mmol/L (136-145); TCO2 26 mmol/L (25-35)
[2017-04-11] MEDS: CORGARD PO SCH (08:04)
[2017-04-11] MEDS: COLACE PO SCH ×2 (09:22→23:06)
[2017-04-11] MEDS: MIRALAX PO SCH ×2 (09:23→23:06)
--- NOTE | 2017-04-11 14:52 | Diag Imaging Result Doc PS360 ---
EXAM: CHEST-PORTABLE INDICATION: dyspnea TECHNIQUE: One view COMPARISON: 04/08/2017 FINDINGS: There is stable elevation of the right hemidiaphragm. There may be mild atelectasis at the right lung base. This is probably stable. There are no definite new consolidations, otherwise. Cardiac silhouette is stable. IMPRESSION: Essentially stable chest. Electronically signed by Ezequiel Hartley 04/11/2017 2:49 PM
--- NOTE | 2017-04-11 15:39 | PROGRESS NOTE ---
DATE: 04/11/2017 SUBJECTIVE: The patient states that he feels a lot better today. He states that his abdominal pain is not as severe. OBJECTIVE: Vital Signs: Temperature 98.4. Blood pressure 100/60, heart rate 55 , respirations 18, O2 saturations 96% on room air. General: This is a young male, lying in bed, in no acute distress. Head: Normocephalic, atraumatic. Heart: S1, S2. Normal. Regular rate and rhythm. Lungs: Clear to auscultation bilaterally. No wheezes. No rales. No rhonchi. Abdomen: Positive bowel sounds. Soft, nontender, nondistended. Extremities: No edema. No cyanosis. No calf tenderness. Neurologic: The patient is alert and oriented x3. LABORATORY DATA: Hemoglobin 13, hematocrit 39, platelets 107,000. BUN 11, creatinine 0.7. Calcium 8.5. CO2 of 26. ASSESSMENT AND PLAN: 1. Hemoptysis secondary to submucosal hemorrhage. Stable. 2. Esophageal varices, status post banding. Continue on Protonix and Nadolol. 3. Anemia. The patient's hemoglobin and hematocrit are stable. 4. Alcoholic liver cirrhosis, aware. 5. Severe depression with suicidal ideation. [facility] has been consulted for possible inpatient treatment. We will await their recommendations. cc: Micaela Walls MD MTDD
[2017-04-12] MEDS: NORCO-7.5 PO PRN ×3 (02:02→11:15)
[2017-04-12] MEDS: DILAUDID IV PRN ×5 (03:55→21:00)
[2017-04-12] MEDS: PROTONIX IV SCH ×3 (07:00→19:30)
[2017-04-12 07:28] LABS: AGAP 10; BUN 13 mg/dL (8-22); CALCIUM 8.4 mg/dL (8.8-10.2); CHLORIDE 101 mmol/L (98-107); COSMO 274; POTASSIUM 4.3 mmol/L (3.5-5.1); SODIUM 137 mmol/L (136-145); TCO2 26 mmol/L (25-35)
[2017-04-12] MEDS ORDERED: ROCEPHIN 1 GM/NS 1 GM/50 ML IVPB IV SCH (07:30)
[2017-04-12] MEDS: CORGARD PO SCH (08:21)
[2017-04-12] MEDS: COLACE PO SCH ×2 (08:23→20:56)
[2017-04-12] MEDS ORDERED: ATIVAN IV PRN (12:14)
[2017-04-12] MEDS: LEVSIN-SL SL SCH ×2 (13:22→16:06)
[2017-04-12] MEDS: SEPTRA DS PO SCH ×2 (13:22→20:59)
--- NOTE | 2017-04-12 16:33 | PROGRESS NOTE ---
DATE: 04/12/2017 SUBJECTIVE: The patient is resting comfortably. He complains of abdominal pain which he states is chronic. OBJECTIVE: Vital Signs: Temperature 98 degrees, blood pressure 96/56, heart rate 62, respirations 18, O2 saturations 97% on room air. General: This is a young male , lying in bed, in no acute distress. Head: Normocephalic, atraumatic. Heart: S1, S2. Normal. Regular rate and rhythm. Lungs: Clear to auscultation bilaterally. No wheezes. No rales. No rhonchi. Abdomen: Positive bowel sounds. Soft, nontender, nondistended. Extremities: No edema. No cyanosis. No calf tenderness. Neurologic: The patient is alert and oriented x3. LABS: Reviewed. ASSESSMENT AND PLAN: 1. Hemoptysis. Improved. 2. Esophageal varices status post banding. Stable. Continue on Protonix and nadolol. 3. Anemia. Patient's hemoglobin and hematocrit are stable. 4. Alcoholic liver cirrhosis. Aware. 5. Depression with suicidal ideation. The patient states that he still feels suicidal. We are currently awaiting an evaluation from [facility]. 6. Will consult group social worker to assist with inpatient psych placement. cc: Micaela Walls MD MTDD
[2017-04-13] MEDS: DILAUDID IV PRN ×6 (01:54→23:47)
[2017-04-13] MEDS: NORCO-7.5 PO PRN ×5 (03:26→21:00)
[2017-04-13] MEDS: PROTONIX IV SCH (06:33)
[2017-04-13 06:52] LABS: AGAP 9; BUN 12 mg/dL (8-22); CALCIUM 8.7 mg/dL (8.8-10.2); CHLORIDE 100 mmol/L (98-107); COSMO 272; POTASSIUM 4.5 mmol/L (3.5-5.1); SODIUM 136 mmol/L (136-145); TCO2 27 mmol/L (25-35)
[2017-04-13 08:49] LABS: HEMATOCRIT 37.5 % (42.0-52.0); HEMOGLOBIN 12.6 g/dL (14.0-18.0); MCH 29.4 PG (27-31); MCHC 33.6 g/dL (33-37); MCV 87.6 FL (81-99); MPV 10.5 FL (7.4-10.4); RBC 4.28 XMIL (4.7-6.1)
[2017-04-13] MEDS: LEVSIN-SL SL SCH ×3 (09:56→16:26)
[2017-04-13] MEDS: COLACE PO SCH ×2 (09:56→21:00)
[2017-04-13] MEDS: CORGARD PO SCH ×2 (09:57→09:59)
[2017-04-13] MEDS: SEPTRA DS PO SCH ×2 (09:57→21:00)
--- NOTE | 2017-04-13 13:30 | PROGRESS NOTE ---
DATE: 04/13/2017 SUBJECTIVE: The patient says that he does not feel good today. He complains of depression and wanting to leave the hospital. OBJECTIVE: Vital Signs: Temperature 98.5 degrees, blood pressure 104/50, heart rate 57, respirations 18, O2 saturations 100% on room air. General: A pleasant, young male lying in bed, in no acute distress. Head: Normocephalic, atraumatic. Heart: S1, S2. Normal. Bradycardic. Lungs: Clear to auscultation bilaterally. No crackles. No rales. Abdomen: Positive bowel sounds. Soft, nontender, nondistended. Extremities: No edema. No cyanosis. No calf tenderness. Neurologic: The patient is alert oriented x3. LABORATORY: Hemoglobin 12, hematocrit 37, platelets 85,000. Potassium 4.5, BUN 12, creatinine 0.8, glucose 107. ASSESSMENT AND PLAN: 1. Hemoptysis. Resolved. 2. Esophageal varices, status post banding. Stable. Continue on Protonix and nadolol. 3. Klebsiella and methicillin sensitive Staphylococcus aureus in the sputum. Continue on Bactrim. 4. Alcoholic liver disease. Aware. 5. Suicidal ideation with severe depression. We are currently awaiting inpatient psychiatric placement. 6. The patient is stable for discharge to an inpatient psychiatric facility. cc: Micaela Walls MD
[2017-04-14] MEDS: NORCO-7.5 PO PRN ×4 (01:05→15:11)
[2017-04-14] MEDS ORDERED: BLISTEX MEDICATED BERRY LIP BALM TOP PRN (02:09)
[2017-04-14] MEDS: DILAUDID IV PRN ×5 (03:41→19:59)
[2017-04-14] MEDS: PROTONIX PO SCH ×2 (05:57→06:11)
[2017-04-14 07:00] LABS: AGAP 10; BUN 12 mg/dL (8-22); CALCIUM 9.1 mg/dL (8.8-10.2); CHLORIDE 99 mmol/L (98-107); COSMO 273; SODIUM 137 mmol/L (136-145); TCO2 28 mmol/L (25-35)
[2017-04-14] MEDS: CORGARD PO SCH ×2 (09:45→09:48)
[2017-04-14] MEDS: LEVSIN-SL SL SCH ×3 (09:45→19:59)
[2017-04-14] MEDS: SEPTRA DS PO SCH ×2 (09:45→19:59)
[2017-04-14] MEDS: COLACE PO SCH ×2 (09:45→19:59)
--- NOTE | 2017-04-14 16:30 | PROGRESS NOTE ---
DATE: 04/14/2017 SUBJECTIVE: States he is feeling better. He is eating well and does not have any abdominal pain at this point. Not coughing up any blood. OBJECTIVE: Vital signs: Temperature 98.5 degrees, pulse 59, respirations 22, blood pressure 105/59. Neck: His CVP is less than 6 cm. No distended neck veins. Lungs: Clear anterior, lateral, and posterior. Cardiovascular: Regular rhythm and rate, without murmur or S3. PMI nondisplaced. Abdomen: Soft. Positive bowel sounds in all quadrants. URINE OUTPUT: Over a liter. LABORATORY: From yesterday, white count 3830, hematocrit 37, platelet count 85,000. Chemistry: Sodium 137, potassium 5.0, chloride 99, BUN 12, creatinine 0.8, calcium 9.1. ASSESSMENT AND PLAN: 1. Hemoptysis, which is resolved. 2. Esophageal varices, status post banding. Continue Protonix and nadolol. 3. Klebsiella and methicillin-sensitive Staphylococcus aureus in the sputum. He is on Bactrim. 4. Alcoholic liver disease. Aware. 5. Suicidal ideation and severe depression. We have called every facility, including places in [place] and [place], and nobody will accept this patient. He denies any suicidal ideation at this point. He wants to go home. He states that he can stay with his mother, so we will make plans to try and get him home tomorrow. cc: Yonis Valiente MD
[2017-04-15] MEDS: DILAUDID IV PRN ×3 (00:08→08:30)
[2017-04-15] MEDS: NORCO-7.5 PO PRN ×2 (05:52→11:57)
[2017-04-15] MEDS: PROTONIX PO SCH ×2 (05:52→06:43)
[2017-04-15] MEDS: SEPTRA DS PO SCH (09:23)
[2017-04-15] MEDS: LEVSIN-SL SL SCH ×2 (09:23→11:59)
[2017-04-15] MEDS: COLACE PO SCH (09:23)
[2017-04-15] MEDS: CORGARD PO SCH (09:24)
[2017-04-15 12:10] VITALS: BP 105/60
--- NOTE | 2017-04-15 12:48 | DISCHARGE SUMMARY ---
ADMISSION DATE: 04/06/2017 DISCHARGE DATE: 04/15/2017 HISTORY: This is a 31-year-old, who presented on 04/06/2017. He was admitted back in May. He came in complaining of nausea and vomiting, vomiting up a lot of blood, bright red blood clots. He had been in the [facility] program for opiate abuse and he had some pain medicines last week. He has been sick really for a couple of weeks. He has not eaten much the last couple of days. He thinks he has had 2 tacos on the last 3 or 4 days. Drank pretty heavy. Reported stopped. He started smoking marijuana at age 11 and began Lortab at age 17. At one point he was taking 150 mg of hydrocodone and was taking some Xanax and Adderall. Working in [place], developed liver trouble. Went to [facility] and found alcoholic cirrhosis, so they did a paracentesis. Apparently he made a comment that they saw some splenic vein thrombosis as well. They had to do some esophageal banding for esophageal varices. ALLERGIES: No known drugs allergies. HOSPITAL COURSE: He was admitted to ICU and given IV fluids. He did complain of headache, and he had an EGD done and they did not find any active bleeding on EGD. There was question whether this blood was coming from his lungs or hemoptysis. We did a CT of his chest which was unremarkable. CT of chest was done on 04/08/2017 which was stable chest, no pneumonia. He had a CT done of his neck and that was on 04/09/2017. There was a 2.9 x 1.4 cm unusual mass on the left lower face adjacent to the external margin of the body, left mandible. Thinning of underlying external cortex of the mandible, periosteal or liposarcoma we thought would be considered. Follow up review of this, it appeared that this place was consistent with a tobacco jaw, he was chewing tobacco. He had no further bleeding. [place] better. There was an attempt to try and get him into a psychiatric facility. He denied any suicide ideation or intent to hurt and wanted to go home. On 04/15/2017 he plans to go home and be with his mom. DISCHARGE MEDICATIONS/INSTRUCTIONS: He was taking Fioricet p.r.n. and Elsie p.r.n. Colace 100 mg b.i.d. We will not give him some Fioricet, but will not give him any Elsie. He is on nadolol 20 mg daily. He is requesting something for depression and anxiety. He is on Protonix 40 mg daily and he was taking Septra Double Strength 1 twice a day which I think we can stop. I will let him start some Celexa 20 mg a day. It is important that he gets primary care and get follow up. I also recommended psychiatric follow up as well. He has no primary care doctor at this time. cc: Yonis Valiente MD
== END 2017-04-15 13:05 | disposition home or self-care (01) ==
LOC: ED 12:38 → SUATTDRO 16:52 → EDIPHOLD 16:52 → ICU 20:38 → 4N 04-09 08:40
PROVIDERS: ATTEND Emergency Medicine